=== PATIENT | female | born 2000 | race Caucasian/White ===

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

== ENCOUNTER 2018-03-01 18:50 | Inpatient (IN) ==
[~2018-03-01 18:50] MED LIST: *HR* Nalbuphine 10 MG/ML AMPUL IVP PRN; Famotidine 20 MG/2 ML VIAL IVP PRN; Lidocaine 1% 20 ML MDV INFILT PRN; Metoclopramide 10 MG/2 ML VIAL IVP PRN; Naloxone 0.4 MG/ML INJ IVP PRN; Ondansetron 4 MG/2 ML VIAL IVP PRN; Ringers Solution, Lactated 1,000 ML IVC SCH
--- NOTE | 2018-03-01 18:58 | OB/GYN History & Physical ---
Date of Encounter: 03/01/18 Time of Encounter: 18:53 Assessment and Plan (1) 38 weeks gestation of Current visit: Yes Status: Acute Admit for labor. GBS negative History of Present Illness Chief complaint: Contractions HPI: Ms. Moreno is a 17 year old at 38 weeks and 3 days that presents to labor and delivery with c/o contractions that have worsened throughout the day. She is seen by the [facility] for her care. She did have anemia that required IV infusion transfusions with this . She has otherwise had a normal course. She states positive movement. She denies headache, vision changes, epigastric pain, and vaginal bleeding/leaking of fluid. Labs: GBS Negative HIV NR Hep B NR RPR NR Rubella non immune Varicella non immune blood type O+ Past Med Surg Social Fam HX - Past Medical History Medical history: other Psychiatric history: no psych history - Past Surgical History Surgical History: no surgical history - Social History Smoking Status: Never smoker Smokeless Tobacco Status: No Alcohol use: none Drug use: none - Family History Mother Name: Nafisa Moreno Living Status: Still Living Hx Family Cardiac Disorders: No Hx Family Respiratory Disorders: No Hx Family Cancer: No Hx Family GI Disorders: No Hx Family Endocrine Disorder: No Hx Family Neuromuscular Disorders: No Hx Family Neurologic Disorders: No Hx Family HEENT Disorders: No Hx Family Autoimmune Disorders: No Hx Family Medical Disorders: No Obstetrical History - Pregnancies : 1 Para: 0 Term: 0 : 0 Ab's: 0 Livin Medications and Allergies Vit/Iron Fumarate/FA [ Tablet] 1 each PO DAILY 09/22/16 [ History] Ferrous Sulfate 325 mg PO BID 02/04/18 [History] Ranitidine HCl [Acid Bi Tri Operator] 150 mg PO DAILY 02/04/18 [History] 3 Allergy/AdvReac Type Severity Reaction Status Date / Time No Known Allergies Allergy Verified 02/04/18 10:58 Review of System OB All systems PM: reviewed and no additional remarkable complaints except as stated Exam - Constitutional Constitutional: well developed, well nourished, no acute distress, average body habitus - HEENT HEENT: Normocephaly, Mucus Membranes Moist - Neck Neck exam: full ROM - Lungs Respiratory exam: CTAB - Cardiovascular Cardiovascular exam: RRR, +S1, +S2 - Abdomen Abdomen: Present: bowel sounds normal, gravid, non tender - Extremities Extremities exam: normal capillary refill, normal inspection, radial pulses palpable and symmetrical Deep Tendon Reflex Grade: 2+ Normal - Vulva Vulva: bilateral: normal - Vagina Vagina: Present: normal moisture - Cervix Dilation: 6 (6-7) Effacement: 100 - Uterus Uterus exam: Present: normal size - Anus/Rectum Anus/Rectum: Present: normal perianal skin Results Result Diagrams: 03/01/18 19:00 All other labs normal. - VTE Reasons for not Prescribing Prophylaxis: Treatment not Indicated - Low risk for VTE
[2018-03-01 19:18] LABS: Basophils % 0.2 %; Eosinophils # 0.1 K/mcL (0.0-0.6); Eosinophils % 0.5 %; Hematocrit 34.8 % (35.3-44.9); Hemoglobin 10.6 g/dL (11.5-15.4); Immature Granulocytes % 1.1 % (0-4); Lymphocytes # 1.5 K/mcL (0.6-4.6); Mean Corpuscular HGB Conc 30.5 g/dL (31.6-35.5); Mean Corpuscular Hemoglobin 22.9 pg (28.0-33.3); Mean Corpuscular Volume 75.2 fL (83.0-100.0); Mean Platelet Volume 9.8 fL (9.4-12.4); Monocytes # 1.3 K/mcL (0.0-1.3); Monocytes % 10.7 %; Neutrophils # 9.2 K/mcL (1.6-8.9); Nucleated Red Blood Cells 0.2 /100 WBC (0); Platelet Count 273 K/mcL (140-400); Red Blood Count 4.63 M/mcL (3.82-4.97); Red Cell Distribution Width 26.4 % (11.5-14.5); Segmented Neutrophils % 75.5 %
[2018-03-01 19:40] LABS: Amphetamine Screen,Urine Negative ng/mL (Cutoff=1000); Barbiturate Screen,Urine Negative ng/mL (Cutoff=200); Benzodiazepines Screen,Urine Negative ng/mL (Cutoff=200); Cannabinoid Screen,Urine Negative ng/mL (Cutoff = 50); Cocaine Screen,Urine Negative ng/mL (Cutoff= 300); Opiate Screen,Urine Negative ng/mL (Cutoff=300); Phencyclidine Screen,Urine Negative ng/mL (Cutoff=25)
[2018-03-01] MEDS ORDERED: Epidural Premix (fent/bupiv) 110 ML EP ONE (19:48)
[2018-03-01 19:49] LABS: Hypochromasia Present (Not Present)
[2018-03-01] MEDS ORDERED: Bupivacaine-MPF 0.25% 10 ML VIAL ONE (19:49)
[2018-03-01] MEDS ORDERED: *HR* FentaNYL (PF) 100 MCG/2 ML VIAL ONE (19:49)
[2018-03-01 19:51] LABS: Microcytosis Present (Not Present); Platelet Estimate Normal (Normal); Polychromasia 1+ (Not Present)
[2018-03-01] MEDS ORDERED: Oxytocin 20 units/ LR 1000 mL 20 UNIT/1,000 ML BAG IVC ONE (20:14)
[2018-03-01] MEDS ORDERED: *HR* FentaNYL (PF) 100 MCG/2 ML VIAL EP ONE (20:21)
[2018-03-01] MEDS ORDERED: EPHEDrine 50 MG/ML VIAL IVP PRN (20:21)
[2018-03-01] MEDS ORDERED: *HR* Ropivacaine/PF 0.2% 20 ML VIAL EP ONE (20:21)
--- NOTE | 2018-03-01 20:25 | Anesthesia Procedures ---
Date of Encounter: 03/01/18 Time of Encounter: 20:23 Procedures: Anesthesia - Epidural/Spinal Patient ID/Chart reviewed: Yes Patient examined: Yes OB Eval: Contractions: Non-stressed pattern Consent Obtained: Yes Supplemental Oxygen: None/Room Air Site Prep: Aseptic Technique Patient position: upright Local Anesthetic: Lidocaine 1% Amount of Local Anesthetic used: 3 Touhy Needle Gauge: 18 Touhy Needle Depth (cm): 7 Catheter Depth at Skin (cm): 12 Test Dose (1.5% Lido + Epi): Volume given (mls): 3 Test Dose Result: Negative Infusion Med: 0.125% Bupivacaine w/ 2 mcg/ml Fentanyl Infusion Rate (mls/hr): [address]: Tegaderm Interspace Used: L3-L4 Loss of Resistance (JAMES): No Blood: No CSF: No Paresthesia: No Procedure: L3-4 aseptically x 1 attempt. 27g thru CSEA epidural needlle until distinct pop and clear CSF. 10 mcg fentanyl and 1ml 0.25% bupivicaine thru spinal needle. Epidural catheter threaded to 12 cm and test dose negative.
[2018-03-01] MEDS ORDERED: Epidural Premix (fent/bupiv) 110 ML EP SCH (20:30)
--- NOTE | 2018-03-01 20:45 | Anesthesia Evaluation PreOp ---
Date of Encounter: 03/01/18 Time of Encounter: 20:43 - Past History Planned Operation: manuel Cardiac History: Denies any Significant Hx Pulmonary History: Denies Any Significant HX PHOTO STYLIST History: Denies Any Significant HX Other Medical History: Denies Any Significant HX Anesthesia History: No Prior Anesthetic Complications, Past Anesthesia Alcohol Use: none Drug use: none Medications and Allergies Vit/Iron Fumarate/FA [ Tablet] 1 each PO DAILY 09/22/16 [ History] Ferrous Sulfate 325 mg PO BID 02/04/18 [History] Ranitidine HCl [Acid Tree Wrapper] 150 mg PO DAILY 02/04/18 [History] 3 Allergy/AdvReac Type Severity Reaction Status Date / Time No Known Allergies Allergy Verified 02/04/18 10:58 - Meds/Allergy Pre-op Review Medications Reviewed: Yes Allergies Reviewed: Yes Beta Blockers on Current Med List: No Anesthesia Results - Labs 03/01/18 19:00 Anesthesia Exam O2 Sat Height 1.7 m Weight 92.986 kg Height: 67 Weight: 92 - HEENT Pupil (Motor): Pupils equal Mallampati: I Teeth: Normal Oral Opening: Greater than 3 - PHOTO STYLIST LOC: Oriented PHOTO STYLIST Motor: Normal RUE, Normal LUE, Normal RLE, Normal LLE, Normal Face PHOTO STYLIST Sensory: Normal: RUE, LUE, RLE, LLE, Face - Cardiac Rhythm: Regular Murmur: None JVD: No Carotid Bruit: No - Pulmonary Breath Sounds: bilateral Clear Respiratory Effort: Symmetrical Anesthesia Assess/Plan ASA Score: 2 Modified [place] Scale for Level of Consciousness: Cooperative, oriented, and tranquil Anesthetic Plan: Regional Monitoring Plan: Standard Monitors
--- NOTE | 2018-03-01 21:43 | OB Labor Progress Note ---
Date of Encounter: 03/01/18 Time of Encounter: 21:38 Labor Progress Note - Subjective Subjective: Patient resting comfortably in bed; feeling a lot of pressure - Vital Signs Vital Signs: VSS - Cervix Cervix: anterior lip/ 100% / +1 - Heart Tones Heart Tones: 155 category I - [place]: Contractions every 2-3 minutes - Interventions Interventions: AROM during vaginal exam for large amount of clear fluid - Plan Plan: Continue routine labor management GBS negative Anticipate vaginal delivery POC per consult with Dr West
--- NOTE | 2018-03-02 01:16 | OB/GYN Procedure Note ---
Delivery - Delivery Date: 03/02/18 Provider: Marlene Quick Intrapartum events: none Delivery induction: none Delivery augmentation: rupture of membranes Delivery monitor: external FHT, external uterine Anesthesia: epidural Quantitated Blood Loss: 400 - Infant (s) A Delivery Date: 03/02/18 Infant Delivery Time: 00:47 Presentation: vertex Position: [place] Route of delivery: Gender: Female Viability: Viable Pounds: 8 Ounces: 12 Weight Gram: 3975 kg at 1 minute: 9 at 5 mins: 9 Shoulder Dystocia: not encountered Specimens collected: cord blood Placenta: spontaneous Cord: 3 umbilical vessels - Repair Episiotomy: none Laceration Description: None - Complications Delivery complications: none Delivery comments: Patient progressed to complete and pushed to of viable vigorous female infant in the [place] position over intact perineum. No nuchal, no meconium, and no shoulder dystocia encountered. Infant placed on maternal abdomen, warmed, dried, and stimulated. Cord double clamped and cut when pulsations ceased with assistance of FOB. Apgars 9/9 at one and five minutes of age respectively. Placenta delivered spontaneously and appears grossly intact; 3 vessel cord. Perineum intact. EBL 400 - uterus firmed after bimanual massage and methergine administration. Dr West notified of . - Disposition Mom disposition: stable in LDR [place] disposition: stable in LDR
[2018-03-02] MEDS ORDERED: Oxytocin 20 units/ LR 1000 mL 20 UNIT/1,000 ML BAG IVC ONE ×2 (02:23→03:37)
[2018-03-02] MEDS ORDERED: Sennosides 8.6 MG TABLET PO PRN (03:37)
[2018-03-02] MEDS ORDERED: Measles/Mumps/Rubella Vacc 0.5 ML VIAL SQ PRN (03:37)
[2018-03-02] MEDS ORDERED: Oxytocin 20 units/ LR 1000 mL 20 UNIT/1,000 ML BAG IVC SCH (03:37)
[2018-03-02] MEDS ORDERED: Acetaminophen 325 MG TABLET PO PRN (03:37)
[2018-03-02] MEDS: Ibuprofen 600 MG TABLET PO PRN (08:33)
[2018-03-02] MEDS: Prenatal Vit/FA 1 EACH TABLET PO SCH (08:33)
[2018-03-02] MEDS ORDERED: Methylergonovine 0.2 MG/ML AMPUL IM ONE (12:24)
[2018-03-03] MEDS: Prenatal Vit/FA 1 EACH TABLET PO SCH (08:55)
[2018-03-03] MEDS: Ibuprofen 600 MG TABLET PO PRN (08:55)
--- NOTE | 2018-03-03 09:55 | Discharge Summary ---
Date of Encounter: 03/03/18 Time of Encounter: 09:53 - Discharge Diagnosis (1) (normal spontaneous vaginal delivery) Priority: Primary Status: Acute Comments: Pt meeting milestones. She desires discharge home today. - Discharge Medications Prescriptions: Ibuprofen [Motrin] 600 mg PO Q6HR PRN #30 tablet PRN Reason: Cramping Docusate [Colace] 100 mg PO BID #60 capsule Home Medications: Docusate [Colace] 100 mg PO BID #60 capsule 03/03/18 [Rx] Ibuprofen [Motrin] 600 mg PO Q6HR PRN #30 tablet 03/03/18 [Rx] Vit/FA 1 each PO DAILY tablet 03/03/18 [Rx] Allergies/Adverse Reactions: 3 Allergy/AdvReac Type Severity Reaction Status Date / Time No Known Allergies Allergy Verified 02/04/18 10:58 Data Procedures and tests throughout hospitalization: Laboratory Tests 03/01/18 03/01/18 18:30 19:00 WBC 12.2 H RBC 4.63 Hgb 10.6 L Hct 34.8 L MCV 75.2 L MCH 22.9 L MCHC 30.5 L RDW 26.4 H Plt Count 273 MPV 9.8 Immature Gran % 1.1 Seg Neutrophils % 75.5 Lymphocytes % 12.0 Monocytes % 10.7 Eosinophils % 0.5 Basophils % 0.2 Neutrophils # 9.2 H Lymphocytes # 1.5 Monocytes # 1.3 Eosinophils # 0.1 Basophils # 0.0 Nucleated RBCs/100 WBC 0.2 H Platelet Estimate Normal Polychromasia 1+ A Hypochromasia Present A Microcytosis Present A Urine Opiates Screen Negative Ur Barbiturates Screen Negative Ur Phencyclidine Scrn Negative Ur Amphetamines Screen Negative U Benzodiazepines Scrn Negative Urine Cocaine Screen Negative U Marijuana (THC) Screen Negative Ur Drug Screen Interp See Below Date of admission: 03/01/18 18:50 Primary care physician: PCP NONE Consults: 03/02/18 03:37 Consult to Telegraph Printer Mechanic [CONS] Routine Comment: Vaginal delivery, consult needed Discharging clinician: Khadra Adams Anticipated date of discharge: 03/03/18 - Patient Status Disposition: Home, Self-Care Condition: Good Functional capacity at discharge: independent ambulation Overall status at discharge: patient is progressing back to baseline - Discharge Instructions Follow Up With: NONE,PCP [Primary Care Provider] - Marlene Quick, CNM [Advanced Practice Nurse] - - Diet and Activity Activity: increase activity as tolerated Diet: regular diet Hospital Course Reason for admission: active labor Delivery: Episiotomy: none Laceration: none Other procedures: none complications: none Discharge diagnosis: IUP at term delivered baby: female Hospital course: - Delivery Date: 03/02/18 Provider: Marlene Quick Intrapartum events: none Delivery induction: none Delivery augmentation: rupture of membranes Delivery monitor: external FHT, external uterine Anesthesia: epidural Quantitated Blood Loss: 400 - (s) A Delivery Date: 03/02/18 Infant Delivery Time: 00:47 Presentation: vertex Position: [place] Route of delivery: Gender: Female Viability: Viable Pounds: 8 Ounces: 12 Weight Gram: 3975 kg at 1 minute: 9 at 5 mins: 9 Shoulder Dystocia: not encountered Specimens collected: cord blood Placenta: spontaneous Cord: 3 umbilical vessels - Repair Episiotomy: none Laceration Description: None - Complications Delivery complications: none - Disposition Mom disposition: home PPD#1 disposition: home with mother Time Attestation: Total time spent providing and/or coordinating discharge services: Time Spent: Less than 30 minutes Exam - Constitutional Vitals: Temp Pulse Resp BP Pulse Ox 98.1 F 99 16 118/73 98 03/02/18 19:40 03/02/18 19:40 03/02/18 19:40 03/02/18 19:40 03/02/18 19:40 General appearance IM: A&O X 3 - Respiratory Respiratory exam: Present: CTAB - Cardiovascular Cardiovascular exam IM: Present: RRR, +S1, +S2 - GI/Abdominal GI/Abdominal exam IM: soft - Uterine Tone: Firm Uterus Position: At Umbilicus - Extremities Exam Extremities exam IM: Present: normal inspection - Neurological Exam Neurological exam: normal gait, oriented X3 - Psychiatric Additional comments: reports good mood
[2018-03-03 09:57] VITALS: BP 112/67
== END 2018-03-03 13:10 | disposition home or self-care (01) | DRG 560 ==
LOC: 1NENULAB → 1NENUOBS 03-02 03:32
PROVIDERS: ADMIT Advanced Practice Midwife; ATTEND Advanced Practice Midwife

== ENCOUNTER 2019-09-13 12:10 | Observation (INO) ==
[2019-09-13] MEDS ORDERED: Ringers Solution, Lactated 1,000 ML IVC SCH (12:15)
[2019-09-13 12:40] LABS: Basophils % 0.5 %; Eosinophils # 0.2 K/mcL (0.0-0.6); Eosinophils % 2.5 %; Hematocrit 31.9 % (35.3-44.9); Hemoglobin 9.4 g/dL (11.5-15.4); Immature Granulocytes % 1.8 % (0-4); Lymphocytes # 1.5 K/mcL (0.6-4.6); Lymphocytes % 16.6 %; Mean Corpuscular HGB Conc 29.5 g/dL (31.6-35.5); Mean Corpuscular Hemoglobin 22.7 pg (28.0-33.3); Mean Corpuscular Volume 77.1 fL (83.0-100.0); Mean Platelet Volume 10.3 fL (9.4-12.4); Monocytes # 1.4 K/mcL (0.0-1.3); Monocytes % 15.8 %; Neutrophils # 5.6 K/mcL (1.6-8.9); Platelet Count 236 K/mcL (140-400); Red Blood Count 4.14 M/mcL (3.82-4.97); Red Cell Distribution Width 15.9 % (11.5-14.5); Segmented Neutrophils % 62.8 %; White Blood Count 8.9 K/mcL (4.3-11.1)
[2019-09-13 12:41] LABS: Bilirubin,Urine Negative (Negative); Blood,Urine Negative (Negative); Color,Urine Yellow (Yellow); Glucose,Urine (UA) Normal (Normal); Ketones,Urine Negative (Negative); Leukocyte Esterase,Urine Small (Negative); Nitrite,Urine Negative (Negative); PH,Urine 6.5 pH Units (5.0-8.0); Protein,Urine Trace mg/dL (Neg-Trace); Specific Gravity,Urine 1.025 (1.010-1.025); Urobilinogen,Urine Normal (Normal)
[2019-09-13 12:44] LABS: Bacteria,Urine None Seen per hpf (None-Few); Hyaline Casts,Urine None Seen per lpf (None-Few); RBC,Urine 0-3 per hpf (0-3); Squamous Epithelial Cell,Urine Many per lpf (None-Few); WBC,Urine 0-3 per hpf (0-3)
[2019-09-13 12:46] LABS: Clarity,Urine Slightly Cloudy (Clear)
[2019-09-13 13:01] LABS: BUN/Creatinine Ratio 24 (6-26); Blood Urea Nitrogen 12 mg/dL (6-20); Carbon Dioxide 21 mEq/L (23-29); Chloride 104 mEq/L (98-107); Glucose 88 mg/dL (70-105); Osmolality,Calculated 277 (280-300); Potassium 3.9 mEq/L (3.5-5.1); Sodium 134 mEq/L (136-145); eGFR For African Americans > 60 (> 60); eGFR For Non-African Americans > 60 (> 60)
[2019-09-13 13:03] LABS: Transitional Epi Cells,Urine Few per hpf (None-Few)
[2019-09-13 13:04] LABS: Mucus,Urine Few per lpf (Few); Renal Epithelial Cells,Urine Few per hpf (None-Few)
== END 2019-09-13 14:35 | disposition home or self-care (01) ==
LOC: 1NENULAB
PROVIDERS: ADMIT Advanced Practice Midwife; ATTEND Advanced Practice Midwife

== ENCOUNTER 2019-09-23 17:52 | Inpatient (IN) ==
[2019-09-23 13:34] LABS: Bilirubin,Urine Negative (Negative); Blood,Urine Negative (Negative); Clarity,Urine Cloudy (Clear); Color,Urine Dark Yellow (Yellow); Glucose,Urine (UA) Normal (Normal); Ketones,Urine Negative (Negative); Leukocyte Esterase,Urine Moderate (Negative); Nitrite,Urine Negative (Negative); PH,Urine 6.5 pH Units (5.0-8.0); Protein,Urine 30 mg/dL (Neg-Trace); Specific Gravity,Urine 1.029 (1.010-1.025); Urobilinogen,Urine Normal (Normal)
[2019-09-23 13:39] LABS: Bacteria,Urine Moderate per hpf (None-Few); Hyaline Casts,Urine Few per lpf (None-Few); RBC,Urine 0-3 per hpf (0-3); Squamous Epithelial Cell,Urine Many per lpf (None-Few)
[2019-09-23 13:42] LABS: Hematocrit 31.3 % (35.3-44.9); Hemoglobin 9.3 g/dL (11.5-15.4); Mean Corpuscular HGB Conc 29.7 g/dL (31.6-35.5); Mean Corpuscular Hemoglobin 23.3 pg (28.0-33.3); Mean Corpuscular Volume 78.3 fL (83.0-100.0); Mean Platelet Volume 10.6 fL (9.4-12.4); Platelet Count 188 K/mcL (140-400); Red Cell Distribution Width 16.5 % (11.5-14.5); White Blood Count 6.3 K/mcL (4.3-11.1)
[2019-09-23 13:54] LABS: WBC,Urine 0-3 per hpf (0-3)
[2019-09-23 13:55] LABS: Renal Epithelial Cells,Urine Few per hpf (None-Few)
[2019-09-23] MEDS: Ringers Solution, Lactated 1,000 ML IVC ONE (14:20)
[2019-09-23 14:28] LABS: Monocytes # 0.8 K/mcL (0.0-1.3); Neutrophils # 5.5 K/mcL (1.6-8.9)
[2019-09-23 14:30] LABS: Platelet Estimate Normal (Normal); Polychromasia 1+ (Not Present)
[~2019-09-23 17:52] MED LIST changes: +*HR* FentaNYL (PF) 100 MCG/2 ML VIAL IVP PRN; -*HR* Nalbuphine 10 MG/ML AMPUL IVP PRN; +Acetaminophen 325 MG TABLET PO ONE; +Acetaminophen IV 1,000 MG/100 ML INFUS..BTL IVPB ONE; +Azithromycin 500 MG in 0.9 % Sodium Chloride 250 ML IVPB ONE; +Ondansetron 4 MG/2 ML VIAL IVP ONE; -Ringers Solution, Lactated 1,000 ML IVC SCH; +Ringers Solution, Lactated 1,000 ML ONE
[2019-09-23] MEDS ORDERED: Gentamicin 380 MG in 0.9 % Sodium Chloride 100 ML IVPB SCH (18:00)
[2019-09-23] MEDS: Ampicillin 2 GM in 0.9 % Sodium Chloride Mini Bag 100 ML IVPB SCH ×2 (18:31→23:18)
[2019-09-23 19:36] LABS: Amphetamine Screen,Urine Negative ng/mL (Cutoff=1000); Barbiturate Screen,Urine Negative ng/mL (Cutoff=200); Benzodiazepines Screen,Urine Negative ng/mL (Cutoff=200); Cannabinoid Screen,Urine Positive ng/mL (Cutoff = 50); Cocaine Screen,Urine Negative ng/mL (Cutoff= 300); Opiate Screen,Urine Negative ng/mL (Cutoff=300); Phencyclidine Screen,Urine Negative ng/mL (Cutoff=25)
[2019-09-23] MEDS: miSOPROStoL 25 MCG TABLET VG SCH (21:20)
[2019-09-24] MEDS ORDERED: Ringers Solution, Lactated 1,000 ML ONE ×3 (01:10→12:44)
[2019-09-24] MEDS: Ringers Solution, Lactated 1,000 ML IVC ONE (01:13)
[2019-09-24] MEDS ORDERED: Oxytocin 20 units/ LR 1000 mL 20 UNIT/1,000 ML BAG IVC SCH ×2 (02:45→16:47)
[2019-09-24] MEDS: Ampicillin 2 GM in 0.9 % Sodium Chloride Mini Bag 100 ML IVPB SCH ×3 (06:03→12:56)
[2019-09-24] MEDS ORDERED: *HR* FentaNYL (PF) 100 MCG/2 ML VIAL EP ONE (09:29)
[2019-09-24] MEDS ORDERED: Ropivacaine/PF 0.2% 20 ML VIAL EP ONE (09:29)
[2019-09-24] MEDS ORDERED: EPHEDrine 50 MG/ML VIAL IVP PRN (09:29)
[2019-09-24] MEDS ORDERED: Epidural Premix (fent/bupiv) 110 ML EP SCH (09:30)
[2019-09-24] MEDS ORDERED: Epidural Premix (fent/bupiv) 110 ML EP ONE (09:35)
[2019-09-24 09:46] LABS: INR 0.9; Prothrombin Time 10.3 Seconds (9.4-12.1)
[2019-09-24 09:49] LABS: Activated Partial Thrombo Time 30.3 Seconds (26.0-36.0)
[2019-09-24 09:53] LABS: Alanine Aminotransferase 13 Units/L (7-52); Albumin 3.5 g/dL (3.5-5.7); Albumin/Globulin Ratio 1.2 (1.1-2.2); Alkaline Phosphatase 150 Units/L (34-104); Aspartate Amino Transferase 21 Units/L (13-39); BUN/Creatinine Ratio 17 (6-26); Bilirubin,Total 0.6 mg/dL (0.3-1.0); Blood Urea Nitrogen 10 mg/dL (6-20); Calcium 8.8 mg/dL (8.6-10.3); Carbon Dioxide 20 mEq/L (23-29); Chloride 106 mEq/L (98-107); Glucose 114 mg/dL (70-105); Osmolality,Calculated 280 (280-300); Potassium 3.8 mEq/L (3.5-5.1); Sodium 135 mEq/L (136-145); Total Protein 6.5 g/dL (6.4-8.9); eGFR For African Americans > 60 (> 60); eGFR For Non-African Americans > 60 (> 60)
[2019-09-24 12:00] LABS: Hemoglobin 8.8 g/dL (11.5-15.4); Red Cell Distribution Width 16.9 % (11.5-14.5)
[2019-09-24 12:01] LABS: Hematocrit 31.3 % (35.3-44.9); Lymphocytes # 0.7 K/mcL (0.6-4.6); Mean Corpuscular HGB Conc 28.1 g/dL (31.6-35.5); Mean Corpuscular Hemoglobin 22.1 pg (28.0-33.3); Mean Corpuscular Volume 78.4 fL (83.0-100.0); Platelet Count 146 K/mcL (140-400); Red Blood Count 3.99 M/mcL (3.82-4.97)
[2019-09-24 12:42] LABS: Monocytes # 0.2 K/mcL (0.0-1.3); Platelet Estimate Normal (Normal)
[2019-09-24] MEDS: miSOPROStoL 25 MCG TABLET VG SCH (12:53)
[2019-09-24] MEDS ORDERED: Ringers Solution, Lactated 1,000 ML IVC SCH (13:00)
[2019-09-24] MEDS ORDERED: Aminoglycoside Consult 1 EACH MC ONE (14:27)
[2019-09-24] MEDS ORDERED: Methylergonovine 0.2 MG/ML AMPUL IM ONE (14:27)
[2019-09-24] MEDS ORDERED: Lanolin 7 G OINT...G. TP PRN (16:47)
[2019-09-24] MEDS ORDERED: Benzocaine/Menthol 56 GM AEROSOL SPRAY TP PRN (16:47)
[2019-09-24] MEDS ORDERED: Acetaminophen 325 MG TABLET PO PRN (16:47)
[2019-09-24] MEDS: Ibuprofen 600 MG TABLET PO PRN (19:52)
[2019-09-25 06:51] LABS: Hematocrit 27.5 % (35.3-44.9); Hemoglobin 8.1 g/dL (11.5-15.4); Mean Corpuscular HGB Conc 29.5 g/dL (31.6-35.5); Mean Corpuscular Hemoglobin 23.1 pg (28.0-33.3); Mean Corpuscular Volume 78.3 fL (83.0-100.0); Mean Platelet Volume 10.9 fL (9.4-12.4); Platelet Count 111 K/mcL (140-400); Red Blood Count 3.51 M/mcL (3.82-4.97); Red Cell Distribution Width 16.8 % (11.5-14.5); White Blood Count 5.8 K/mcL (4.3-11.1)
[2019-09-25 07:45] VITALS: BP 104/64
[2019-09-25 07:50] LABS: Hypochromasia Present (Not Present); Monocytes # 0.8 K/mcL (0.0-1.3); Neutrophils # 3.9 K/mcL (1.6-8.9); Platelet Estimate Normal (Normal)
[2019-09-25] MEDS: Ibuprofen 600 MG TABLET PO PRN (07:57)
[2019-09-25] MEDS ORDERED: Prenatal Vit/FA 1 EACH TABLET PO SCH (09:00)
== END 2019-09-25 14:28 | disposition home or self-care (01) | DRG 560 ==
LOC: 1NENULAB → 1NENUOBS 09-24 16:37
PROVIDERS: ADMIT Registered Nurse; ATTEND Registered Nurse